=== PATIENT | female | born 1995 | race African-American/Black ===

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

== ENCOUNTER 2017-10-19 16:05 | Emergency (ER) | payer BC ==
[~2017-10-19] VITALS: Ht 160 cm; Wt 52.2 kg
--- NOTE | ~2017-10-19 | EKG ---
[address] [place] [address] ELECTROCARDIOGRAM REPORT Name: DIANRIO [id number] Admission: 10/19/17 Attend Phys: Discharge: 10/19/17 Date of : [birth year] Report #: [id number] THIS REPORT FOR: //name// [facility] ED Test Date: 2017-10-19 Test Time: 17:42:19 Pat Name: RIO BIGGS Department: Room: Gender: F Project [employer] Finance: : 1995 Requested By: Estefani Negrete Order Number: [id number] MD: Franklin Fung Measurements Intervals [place] Rate: 61 P: 22 PA: 139 QRS: 82 QRSD: 84 T: 32 QT: 391 QTc: 394 Interpretive Statements Sinus rhythm Atrial premature complexes RSR' in V1 or V2, right VCD No previous ECG available for comparison Electronically Signed On 10-20-2017 8:01:36 CDT by Franklin Fung [email or web address] <ELECTRONICALLY SIGNED> By: Franklin Fung MD, [facility] 10/20/17 0801 1742 1742 Franklin Fung MD, FACC /EPI
[~2017-10-19 16:05] MED LIST changes: +GUAIFEN-CODEINE10 ML PO; +MYRBETRIQ25 MG PO; +OXYBUTYNIN 5 MG5 M2 PO; +TRI-ESTARYLLA1 EACH PO
[2017-10-19 16:19] LABS: URINE BILIRUBIN NEGATIVE (Negative); URINE BLOOD 3+ (Negative); URINE CLARITY CLEAR; URINE COLOR YELLOW; URINE GLUCOSE-RANDOM* NEGATIVE (Negative); URINE KETONES NEGATIVE (Negative); URINE LEUKOCYTES-REFLEX 2+ (Negative); URINE NITRITE-REFLEX NEGATIVE (Negative); URINE PROTEIN (DIPSTICK) NEGATIVE (Negative); URINE SPECIFIC GRAVITY 1.025 (1.005-1.035); URINE UROBILINOGEN 0.2 E.U./dl (0.2-1.0)
[2017-10-19 16:29] LABS: BACTERIA-REFLEX None Seen /HPF (None Seen); CASTS None Seen /LPF (None Seen); CRYSTALS None Seen /LPF (None Seen); MUCUS 4-6 Moderate strn/LPF (None Seen); SQUAMOUS >10 Many /LPF (0-3)
[2017-10-19 16:47] LABS: ABSOLUTE NEUTROPHILS 7.5 thou/uL (1.4-8.2); BASOPHILS 0.2 % (0.0-2.0); EOSINOPHILS 0.6 % (0.0-3.0); HEMATOCRIT 37.9 % (37.0-47.0); LYMPHOCYTES 22.2 % (24.0-44.0); MCH 30.1 pg (26.0-34.0); MCHC 34.3 g/dL (28.0-37.0); MCV 87.7 fL (80.0-100.0); MONOCYTES 5.3 % (1.0-8.0); PLATELET COUNT 188 thou/uL (150-400); POLYS 71.7 % (36.0-66.0); RBC 4.32 mil/uL (4.20-5.00); RDW 12.7 % (10.5-14.5); WBC 10.5 thou/uL (4.0-11.0)
[2017-10-19 16:55] LABS: ANION GAP < 0 mmol/L (7-16); BUN 14 mg/dL (7-18); CALCIUM 8.9 mg/dL (8.5-10.1); CHLORIDE 97 mmol/L (98-107); CO2 25 mmol/L (21-32); CREATININE 0.8 mg/dL (0.6-1.0); GLUCOSE 87 mg/dL (74-106); POTASSIUM 3.2 mmol/L (3.5-5.1); SODIUM 121 mmol/L (136-145)
[2017-10-19 18:05] LABS: CALCIUM 8.9 mg/dL (8.5-10.1); CREATININE 0.7 mg/dL (0.6-1.0); POTASSIUM 3.7 mmol/L (3.5-5.1)
[2017-10-19] MEDS ORDERED: KEFLEX500 M1 PO (18:24)
[2017-10-19] MEDS ORDERED: TORADOL 10 MG T10 MG PO (18:24)
[2017-10-19 18:44] VITALS: BP 103/74
== END 2017-10-19 18:45 | disposition home or self-care (01) ==
LOC: ER 16:05
PROVIDERS: Nurse Practitioner Family
DX: N39.0 Urinary tract infection, site not specified (principal)